=== PATIENT | male | born 1965 | race Caucasian/White ===

== ENCOUNTER → 2020-11-01 | Outpatient (CLI) | payer OTHER ==
[~2020-11-01] MED LIST: ADULT WAL-100 MG/5 M PO; CHERRY JUICE PO; COMBIVENT RESPIM4 GM INH; DEXAMETHASONE6 MG PO; ELIQUIS2.5 MG PO; GARLIC1 EAC1 PO; LISINOPRIL10 MG PO; MOBIC15 MG PO; MULTIVITAMINS1 EAC1 PO; NEURONTIN 100100 MG PO; NEURONTIN300 MG PO; NORCO 10-325 T1 EACH PO; PERCOCET 10-321 EACH PO; PRILOSEC OTC20 MG PO; PROTONIX40 MG PO; TUMERIC PO; VITAMIN C1000 MG PO; WELLBUTRIN XL150 MG PO; ZINC30 MG PO
== END ==
LOC: EXRD 13:44
DX: R06.02 Shortness of breath (principal); R91.8 Other nonspecific abnormal finding of lung field
CPT/HCPCS: 71046

== ENCOUNTER → 2020-11-19 | Outpatient (CLI) | payer OTHER | LOC: HEART 5 11-08 08:30 | DX: R07.9 Chest pain, unspecified (principal); I08.1 Rheumatic disorders of both mitral and tricuspid valves; R93.1 Abnormal findings on diagnostic imaging of heart and coronary circulation | CPT/HCPCS: 78452; 93306; A9502; J2785 ==